=== PATIENT | female | born 1960 | race Caucasian/White ===

== ENCOUNTER 2017-09-29 18:09 | Emergency (ER) | payer MEDICARE ==
[~2017-09-29] VITALS: Ht 167.6 cm; Wt 139.3 kg
[~2017-09-29 18:09] MED LIST: ALBU18HF2 INH; ALPR-624 PO; AMIT-189 PO; CARV3.12 PO; HYDR-565 PO; INSU100V9 SQ; LISI2.5T2 PO; METF500T PO; METH20CP12 PO; TOPI100T18 PO; TRAV5DRO EACHEYE
[2017-09-29] MEDS ORDERED: ipratropium/albuterol 3ml nebule NEB ONE (18:35)
[2017-09-29 19:15] LABS: BASOPHILS % (AUTO) 0.4 % (0-1); EOSINOPHILS # (AUTO) 0.1 X10'3 (0-0.9); HEMATOCRIT 40.6 % (35.0-45.0); LYMPHOCYTES # (AUTO) 2.4 X10'3 (1.1-4.8); LYMPHOCYTES % (AUTO) 50.8 % (21-51); MEAN CORPUSCULAR HEMOGLOBIN 31.6 PG (27.0-31.0); MEAN CORPUSCULAR HGB CONC 34.5 % (33.0-36.5); MEAN CORPUSCULAR VOLUME 91.8 FL (78-98); MEAN PLATELET VOLUME 9.4 FL (7.4-10.4); MONOCYTES # (AUTO) 0.4 X10'3 (0-0.9); MONOCYTES % (AUTO) 8.9 % (2-12); NEUTROPHILS # (AUTO) 1.7 X10'3 (1.8-7.7); NEUTROPHILS % (AUTO) 36.9 % (42-75); PLATELET COUNT 180 X10'3 (140-440); RED BLOOD COUNT 4.42 X10'6 (4.20-5.60); RED CELL DISTRIBUTION WIDTH 12.6 % (11.5-14.5); WHITE BLOOD COUNT 4.7 X10'3 (4.5-11.0)
[2017-09-29 19:25] LABS: PROTHROMBIN TIME 10.3 SECONDS (9.0-12.0)
[2017-09-29 19:38] LABS: ALANINE AMINOTRANSFERASE 24 U/L (12-78); ALBUMIN 3.5 G/DL (3.4-5.0); ALBUMIN/GLOBULIN RATIO 0.9 (1.1-1.5); ALKALINE PHOSPHATASE 73 IU/L (46-116); ANION GAP 7 (8-16); ASPARTATE AMINO TRANSFERASE 15 U/L (10-37); BILIRUBIN,TOTAL 0.4 MG/DL (0.1-1.0); BLOOD UREA NITROGEN 16 MG/DL (7-18); CALCIUM 8.6 MG/DL (8.5-10.1); CHLORIDE 104 MMOL/L (99-107); GLUCOSE 116 MG/DL (70-104); POTASSIUM 3.6 MMOL/L (3.5-5.1); SODIUM 138 MMOL/L (135-145); TOTAL CARBON DIOXIDE 27.5 MMOL/L (24-32); TOTAL PROTEIN 7.2 G/DL (6.4-8.2); eGFR 74 ML/MIN
[2017-09-29 19:40] LABS: ABG BASE EXCESS -0.2 mmol/L (-2.0-3.0); ABG HCO3 23.8 mmol/L (22.0-26.0); ABG PCO2 (T) 36.1 mmHg (32.0-45.0); ABG PH (T) 7.435 (7.350-7.450); ABG PO2 (T) 76.6 mmHg (83-108); FCOHb 0.3 % (0.5-1.5); FO2Hb 95.7 % (94-100); PATIENT TEMPERATURE 36.6; TOTAL HEMOGLOBIN 14.3 G/dl (12.0-16.0)
[2017-09-29] MEDS ORDERED: GUAI120L55 PO (20:11)
[2017-09-29] MEDS ORDERED: ALBU8.5H8 INH (20:11)
[2017-09-29] MEDS ORDERED: GUAI600T45 PO (20:11)
[2017-09-29] MEDS ORDERED: PRED10TA PO (20:11)
[2017-09-29 20:48] VITALS: BP 152/89
== END 2017-09-29 20:49 | disposition home or self-care (01) ==
LOC: ER 18:10
DX: J09.X2 Influenza due to identified novel influenza A virus with other respiratory manifestations (principal); J20.8 Acute bronchitis due to other specified organisms; J45.909 Unspecified asthma, uncomplicated; I10 Essential (primary) hypertension; E11.9 Type 2 diabetes mellitus without complications; Z79.4 Long term (current) use of insulin; Z79.84 Long term (current) use of oral hypoglycemic drugs; Z79.899 Other long term (current) drug therapy; Z88.5 Allergy status to narcotic agent; Z88.8 Allergy status to other drugs, medicaments and biological substances
CPT/HCPCS: 36415; 36600; 71045; 80053; 82803; 83605; 83880; 84484; 85018; 85025; 85610; 87040; 87502; 87503; 93005; 94640; 94760; 99285

== ENCOUNTER 2019-06-05 14:17 | Emergency (ER) | payer MEDICARE ==
[~2019-06-05] VITALS: Ht 167.6 cm; Wt 122.0 kg
[~2019-06-05 14:17] MED LIST changes: +ALBU8.5H8 INH; +GUAI120L55 PO; +GUAI600T45 PO; +HYDR-4353 PO; -HYDR-565 PO; +PRED10TA PO; +TOP100T PO; -TOPI100T18 PO
[2019-06-05 15:33] LABS: CLARITY,URINE SLIGHTLY CLOUDY (Clear); COLOR,URINE YELLOW (Yellow); GLUCOSE, URINE NEGATIVE (Neg); KETONES,URINE NEGATIVE (Neg); LEUKOCYTE ESTERASE ,URINE SMALL (Neg); NITRITES, URINE NEGATIVE (Neg); OCCULT BLOOD,URINE NEGATIVE (Neg); PROTEIN,URINE NEGATIVE (Neg); UROBILINOGEN,URINE 0.2 E.U/dL (0.2-1.0)
[2019-06-05 15:34] LABS: BASOPHILS % (AUTO) 0.3 % (0-1); EOSINOPHILS # (AUTO) 0.3 X10'3 (0-0.9); EOSINOPHILS % (AUTO) 3.3 % (0-6); HEMATOCRIT 42.4 % (35.0-45.0); HEMOGLOBIN 14.2 g/dl (12.0-16.0); LYMPHOCYTES # (AUTO) 2.8 X10'3 (1.1-4.8); LYMPHOCYTES % (AUTO) 35.7 % (21-51); MEAN CORPUSCULAR HEMOGLOBIN 31.6 PG (27.0-31.0); MEAN CORPUSCULAR HGB CONC 33.5 g/dL (33.0-36.5); MEAN CORPUSCULAR VOLUME 94.5 FL (78-98); MEAN PLATELET VOLUME 9.5 FL (7.4-10.4); MONOCYTES # (AUTO) 0.6 X10'3 (0-0.9); MONOCYTES % (AUTO) 7.2 % (2-12); NEUTROPHILS # (AUTO) 4.1 X10'3 (1.8-7.7); NEUTROPHILS % (AUTO) 53.5 % (42-75); PLATELET COUNT 211 X10'3 (140-440); RED BLOOD COUNT 4.48 X10'6 (4.20-5.60); RED CELL DISTRIBUTION WIDTH 12.8 % (11.5-14.5); WHITE BLOOD COUNT 7.7 X10'3 (4.5-11.0)
[2019-06-05 15:36] LABS: UA COLLECTION TYPE CLN CATCH MIDSTREAM
[2019-06-05 15:40] LABS: BACTERIA,URINE 1+ /HPF (Neg); MUCUS STRANDS FEW /LPF (Neg); RBC,URINE 0-2 /HPF (0-2); SQUAMOUS EPITHELIAL CELL,UR MODERATE /LPF (FEW); WBC CLUMPS,URINE FEW /HPF (NEGATIVE)
[2019-06-05 15:59] LABS: ALANINE AMINOTRANSFERASE 20 U/L (12-78); ALBUMIN 3.7 G/DL (3.4-5.0); ALBUMIN/GLOBULIN RATIO 0.9 (1.1-1.5); ALKALINE PHOSPHATASE 77 IU/L (46-116); ANION GAP 7 (8-16); ASPARTATE AMINO TRANSFERASE 14 U/L (10-37); BILIRUBIN,TOTAL 0.3 MG/DL (0.1-1.0); BLOOD UREA NITROGEN 20 MG/DL (7-18); CALCIUM 8.8 MG/DL (8.5-10.1); CHLORIDE 107 MMOL/L (99-107); CREATININE 0.87 MG/DL (0.40-0.90); GLUCOSE 106 MG/DL (70-104); POTASSIUM 4.2 MMOL/L (3.5-5.1); SODIUM 142 MMOL/L (135-145); TOTAL CARBON DIOXIDE 28.3 MMOL/L (24-32); TOTAL PROTEIN 7.7 G/DL (6.4-8.2); eGFR 67 ML/MIN
--- NOTE | 2019-06-05 16:04 | NUR ---
[facility]: SHE HENOK PICK PATIENT UP FROM [facility], TAKE TO VASCULAR LAB FOR STUDY, [facility]
--- NOTE | 2019-06-05 17:42 | NUR ---
JOANNE AT [facility]. PT STATES INHALERS AND NEBULIZERS NOT WORKING. REPORTS HX OF GETTING PNA BUT HAS NOT HAD IT FOR 5 YEARS.
[2019-06-05] MEDS ORDERED: ipratropium/albuterol 3ml nebule NEB ONE (18:00)
[2019-06-05] MEDS ORDERED: AZIT250T PO (18:10)
[2019-06-05] MEDS ORDERED: BECL7.3A INH (18:10)
[2019-06-05] MEDS ORDERED: ALB0.5UD IH (18:10)
[2019-06-05] MEDS ORDERED: ALBU18HF2 INH (18:10)
[2019-06-05 19:42] VITALS: BP 126/67
--- NOTE | 2019-06-05 19:42 | NUR ---
PT FINSISHED NEB TREATMENT AND REPROTS MUCH IMPROVEMENT IN SYMPTOMS. CURRENT VSS, R A SATS 99%. PAIN TO LUNGS INCREASED WITH COUGHING . GIVEN WARM BLANKETS
== END 2019-06-05 19:51 | disposition home or self-care (01) ==
LOC: ER 14:18
DX: N39.0 Urinary tract infection, site not specified (principal); J45.901 Unspecified asthma with (acute) exacerbation; I10 Essential (primary) hypertension; E11.9 Type 2 diabetes mellitus without complications; M10.9 Gout, unspecified; M19.90 Unspecified osteoarthritis, unspecified site; F41.9 Anxiety disorder, unspecified; M79.7 Fibromyalgia; G47.30 Sleep apnea, unspecified; Z88.8 Allergy status to other drugs, medicaments and biological substances; Z88.6 Allergy status to analgesic agent; Z79.899 Other long term (current) drug therapy; Z79.2 Long term (current) use of antibiotics; Z90.49 Acquired absence of other specified parts of digestive tract; Z98.890 Other specified postprocedural states
CPT/HCPCS: 36415; 71046; 80053; 81001; 85025; 87088; 93005; 93971; 94640; 94760; 99284

== ENCOUNTER 2019-08-07 18:56 | Emergency (ER) | payer MEDICARE ==
[~2019-08-07] VITALS: Ht 172.7 cm; Wt 131.9 kg
[~2019-08-07 18:56] MED LIST changes: +AZIT250T PO; +BECL7.3A INH
[2019-08-07 20:12] LABS: COLOR,URINE YELLOW (Yellow); GLUCOSE, URINE NEGATIVE (Neg); KETONES,URINE NEGATIVE (Neg); LEUKOCYTE ESTERASE ,URINE SMALL (Neg); NITRITES, URINE NEGATIVE (Neg); OCCULT BLOOD,URINE NEGATIVE (Neg); PH,URINE 5.5 (4.8-8.0); PROTEIN,URINE NEGATIVE (Neg); UROBILINOGEN,URINE 0.2 E.U/dL (0.2-1.0)
[2019-08-07 20:13] LABS: URINE HCG NEGATIVE (NEG)
[2019-08-07 20:18] LABS: CLARITY,URINE SLIGHTLY CLOUDY (Clear); UA COLLECTION TYPE CLN CATCH MIDSTREAM
[2019-08-07 20:19] LABS: BACTERIA,URINE FEW /HPF (Neg); CAL OXALATE CRYSTALS 1+ /HPF (NEGATIVE); RBC,URINE 0-2 /HPF (0-2); SQUAMOUS EPITHELIAL CELL,UR FEW /LPF (FEW)
[2019-08-07] MEDS ORDERED: ipratropium/albuterol 3ml nebule NEB ONE (20:45)
[2019-08-07 21:08] LABS: BASOPHILS # (AUTO) 0.1 X10'3 (0-0.2); BASOPHILS % (AUTO) 0.5 % (0-1); EOSINOPHILS # (AUTO) 0.2 X10'3 (0-0.9); EOSINOPHILS % (AUTO) 2.3 % (0-6); HEMATOCRIT 46.2 % (35.0-45.0); HEMOGLOBIN 15.5 g/dl (12.0-16.0); LYMPHOCYTES % (AUTO) 28.6 % (21-51); MEAN CORPUSCULAR HEMOGLOBIN 31.6 PG (27.0-31.0); MEAN CORPUSCULAR HGB CONC 33.6 g/dL (33.0-36.5); MEAN CORPUSCULAR VOLUME 94.2 FL (78-98); MEAN PLATELET VOLUME 9.4 FL (7.4-10.4); MONOCYTES # (AUTO) 0.6 X10'3 (0-0.9); MONOCYTES % (AUTO) 6.1 % (2-12); NEUTROPHILS # (AUTO) 6.4 X10'3 (1.8-7.7); NEUTROPHILS % (AUTO) 62.5 % (42-75); PLATELET COUNT 251 X10'3 (140-440); RED BLOOD COUNT 4.91 X10'6 (4.20-5.60); RED CELL DISTRIBUTION WIDTH 13.2 % (11.5-14.5); WHITE BLOOD COUNT 10.3 X10'3 (4.5-11.0)
[2019-08-07 21:20] LABS: ALANINE AMINOTRANSFERASE 23 U/L (12-78); ALKALINE PHOSPHATASE 87 IU/L (46-116); ANION GAP 8 (8-16); ASPARTATE AMINO TRANSFERASE 10 U/L (10-37); BILIRUBIN,TOTAL 0.3 MG/DL (0.1-1.0); BLOOD UREA NITROGEN 19 MG/DL (7-18); BUN/CREATININE RATIO 24.4 (6.6-38.0); CALCIUM 9.1 MG/DL (8.5-10.1); CHLORIDE 105 MMOL/L (99-107); CREATININE 0.78 MG/DL (0.40-0.90); GLUCOSE 126 MG/DL (70-104); LIPASE 88 U/L (73-393); POTASSIUM 3.8 MMOL/L (3.5-5.1); SODIUM 139 MMOL/L (135-145); TOTAL CARBON DIOXIDE 26.2 MMOL/L (24-32); TOTAL PROTEIN 8.1 G/DL (6.4-8.2); eGFR 76 ML/MIN
[2019-08-07 22:38] VITALS: BP 162/84
== END 2019-08-07 22:41 | disposition home or self-care (01) ==
LOC: ER 18:59
DX: J20.9 Acute bronchitis, unspecified (principal); J32.9 Chronic sinusitis, unspecified; I10 Essential (primary) hypertension; J45.909 Unspecified asthma, uncomplicated; E11.9 Type 2 diabetes mellitus without complications; M19.90 Unspecified osteoarthritis, unspecified site; M79.7 Fibromyalgia; G47.30 Sleep apnea, unspecified; F41.9 Anxiety disorder, unspecified; Z90.49 Acquired absence of other specified parts of digestive tract; Z98.890 Other specified postprocedural states; Z88.6 Allergy status to analgesic agent; Z88.5 Allergy status to narcotic agent; Z88.8 Allergy status to other drugs, medicaments and biological substances; Z91.040 Latex allergy status; Z79.4 Long term (current) use of insulin; Z79.899 Other long term (current) drug therapy; Z79.84 Long term (current) use of oral hypoglycemic drugs
CPT/HCPCS: 36415; 71046; 80053; 81001; 81025; 83605; 83690; 85025; 87040; 87088; 87186; 94640; 94760; 99284

== ENCOUNTER → 2020-10-25 | Outpatient (CLI) | payer MEDICARE ==
[~2020-10-25] MED LIST changes: +ALBU2.5V10 PO; -AMIT-189 PO; +AMOX-580 PO; +AZEL137S4 BOTHNARES; -AZIT250T PO; +BLOO-577; +BUPR1PAT23 TOP; +DEXT20CA4 PO; +ERGO500054 PO; +HYDR-3686; +HYDR-3972 PO; +HYDR25TA4 PO; +HYDR2TAB7 PO; +LANC-509; +LEVO750T46 PO; +LIDOcaine 2% 5ml jelly ONE; +METF-438 PO; -METF500T PO; +MYC15CR; +NAPR-996 PO; +NEED-1; +OMEP-50 PO; +PHEN-887 PO; +POLY510P31; -PRED10TA PO; +ROSU10TA28 PO; +TOPI200T16; +TRAZ-251
== END | disposition home or self-care (01) ==
LOC: WOUND CARE 08:21
PROVIDERS: ATTEND Nurse Practitioner
DX: T81.89XA Other complications of procedures, not elsewhere classified, initial encounter (principal); L98.412 Non-pressure chronic ulcer of buttock with fat layer exposed; E11.36 Type 2 diabetes mellitus with diabetic cataract; E11.65 Type 2 diabetes mellitus with hyperglycemia; J45.909 Unspecified asthma, uncomplicated; M19.90 Unspecified osteoarthritis, unspecified site; I10 Essential (primary) hypertension; G89.4 Chronic pain syndrome; M79.7 Fibromyalgia; E66.01 Morbid (severe) obesity due to excess calories; F12.90 Cannabis use, unspecified, uncomplicated; Z79.4 Long term (current) use of insulin; Z86.14 Personal history of Methicillin resistant Staphylococcus aureus infection; Z96.651 Presence of right artificial knee joint; Z90.49 Acquired absence of other specified parts of digestive tract; Z68.42 Body mass index [BMI] 45.0-49.9, adult; Z79.899 Other long term (current) drug therapy; Y83.8 Other surgical procedures as the cause of abnormal reaction of the patient, or of later complication, without mention of misadventure at the time of the procedure; Y92.238 Other place in hospital as the place of occurrence of the external cause
CPT/HCPCS: 11042

== ENCOUNTER 2020-11-09 10:28 | Emergency (ER) | payer MEDICARE ==
[~2020-11-09] VITALS: Ht 165.1 cm; Wt 129.6 kg
[~2020-11-09 10:28] MED LIST changes: -LEVO750T46 PO; -LIDOcaine 2% 5ml jelly ONE
[2020-11-09 10:31] VITALS: BP 163/71
== END 2020-11-09 12:49 | disposition home or self-care (01) ==
LOC: ER 10:29
DX: S92.354A Nondisplaced fracture of fifth metatarsal bone, right foot, initial encounter for closed fracture (principal); I10 Essential (primary) hypertension; J45.909 Unspecified asthma, uncomplicated; E11.9 Type 2 diabetes mellitus without complications; M19.90 Unspecified osteoarthritis, unspecified site; M79.7 Fibromyalgia; M10.9 Gout, unspecified; G47.30 Sleep apnea, unspecified; Z88.6 Allergy status to analgesic agent; Z88.8 Allergy status to other drugs, medicaments and biological substances; Z91.040 Latex allergy status; Z79.4 Long term (current) use of insulin; Z79.899 Other long term (current) drug therapy; Z90.49 Acquired absence of other specified parts of digestive tract; X50.1XXA Overexertion from prolonged static or awkward postures, initial encounter; Y93.89 Activity, other specified; Y92.89 Other specified places as the place of occurrence of the external cause; Y99.8 Other external cause status
CPT/HCPCS: 73630; 99284

== ENCOUNTER 2020-12-15 13:07 | Emergency (ER) | payer MEDICARE ==
[~2020-12-15] VITALS: Ht 165.1 cm; Wt 135.4 kg
[~2020-12-15 13:07] MED LIST changes: -AMOX-580 PO; -HYDR-3686; +HYDR-3686 PO; +LIDOcaine 2% 5ml jelly ONE; -TRAZ-251; +TRAZ-251 PO
[2020-12-15 13:44] LABS: BASOPHILS % (AUTO) 0.3 % (0-1); EOSINOPHILS # (AUTO) 0.1 X10'3 (0-0.9); EOSINOPHILS % (AUTO) 1.9 % (0-6); HEMATOCRIT 39.6 % (35.0-45.0); HEMOGLOBIN 13.5 g/dl (12.0-16.0); LYMPHOCYTES # (AUTO) 2.3 X10'3 (1.1-4.8); LYMPHOCYTES % (AUTO) 30.1 % (21-51); MEAN CORPUSCULAR HEMOGLOBIN 32.5 PG (27.0-31.0); MEAN CORPUSCULAR VOLUME 95.6 FL (78-98); MEAN PLATELET VOLUME 9.2 FL (7.4-10.4); MONOCYTES # (AUTO) 0.5 X10'3 (0-0.9); MONOCYTES % (AUTO) 6.8 % (2-12); NEUTROPHILS # (AUTO) 4.6 X10'3 (1.8-7.7); NEUTROPHILS % (AUTO) 60.9 % (42-75); PLATELET COUNT 219 X10'3 (140-440); RED BLOOD COUNT 4.15 X10'6 (4.20-5.60); RED CELL DISTRIBUTION WIDTH 13.3 % (11.5-14.5); WHITE BLOOD COUNT 7.6 X10'3 (4.5-11.0)
[2020-12-15 13:59] LABS: ALANINE AMINOTRANSFERASE 19 U/L (12-78); ALBUMIN 3.8 G/DL (3.4-5.0); ALKALINE PHOSPHATASE 86 IU/L (46-116); ANION GAP 9 (8-16); ASPARTATE AMINO TRANSFERASE 10 U/L (10-37); BILIRUBIN,TOTAL 0.3 MG/DL (0.1-1.0); BLOOD UREA NITROGEN 19 MG/DL (7-18); BUN/CREATININE RATIO 24.1 (6.6-38.0); CALCIUM 9.5 MG/DL (8.5-10.1); CHLORIDE 103 MMOL/L (99-107); CREATININE 0.79 MG/DL (0.40-0.90); GLUCOSE 209 MG/DL (70-104); POTASSIUM 3.7 MMOL/L (3.5-5.1); SODIUM 141 MMOL/L (135-145); TOTAL CARBON DIOXIDE 28.6 MMOL/L (24-32); TOTAL PROTEIN 7.7 G/DL (6.4-8.2); eGFR 75 ML/MIN
[2020-12-15 17:36] LABS: D-DIMER 1.75 MG/L FEU (0-0.50)
[2020-12-15] MEDS ORDERED: acetaminophen 650mg rectal suppository RC PRN (17:40)
[2020-12-15] MEDS ORDERED: magnesium hydroxide 30ml (MOM) UD suspension PO PRN (17:40)
[2020-12-15] MEDS ORDERED: ondansetron/PF 4mg/2ml inj IV PRN (17:40)
[2020-12-15] MEDS ORDERED: nitroGLYCERIN 0.4mg SUBLingual tab SL PRN (17:40)
[2020-12-15] MEDS ORDERED: potassium Cl 40MEQ/1/2NS 520ml 520 ML IV PRN ×2 (17:40)
[2020-12-15] MEDS ORDERED: MESSAGE TO PHARMACY PO ONE (17:40)
[2020-12-15] MEDS ORDERED: dextrose 50%-water 50ml dispensing syringe IV PRN ×2 (17:40)
[2020-12-15] MEDS ORDERED: aminophylline 250mg/10ml inj. IV PRN (17:40)
[2020-12-15] MEDS ORDERED: dextrose ORAL solution 15 GM/59 ML bottle PO PRN ×2 (17:40)
[2020-12-15] MEDS ORDERED: acetaminophen 325mg tablet PO PRN ×2 (17:40)
[2020-12-15] MEDS ORDERED: regadenoson 0.4mg/5ml syringe IV ONE (17:40)
[2020-12-15] MEDS ORDERED: glucagon, human recombinant 1mg kit SUBCUT PRN (17:40)
[2020-12-15] MEDS ORDERED: diphenhydrAMINE 25mg capsule PO PRN (17:40)
[2020-12-15] MEDS ORDERED: magnesium 4gm in 100ml NS 100 ML IV PRN (17:40)
[2020-12-15] MEDS ORDERED: bisacodyl 10mg suppository rectal RC PRN (17:40)
[2020-12-15] MEDS ORDERED: insulin Lispro (HumaLOG) vial - multi-dose SQ SCH (17:40)
[2020-12-15] MEDS ORDERED: magnesium Cl slow-release 64mg tablet PO PRN (17:40)
[2020-12-15] MEDS ORDERED: mag hydrox/Alum hydrox/simeth 30ml oral suspension PO PRN (17:40)
[2020-12-15] MEDS ORDERED: metoprolol tartrate 1mg/ml inj IV PRN (17:40)
[2020-12-15] MEDS ORDERED: potassium Cl 20 mEq SR tablet PO PRN ×2 (17:40)
[2020-12-15] MEDS ORDERED: magnesium 2GM in 50ml NS 50 ML IV PRN (17:40)
[2020-12-15] MEDS ORDERED: DOCU-340 PO (17:42)
[2020-12-15] MEDS ORDERED: LISI2.5T2 PO (17:42)
[2020-12-15] MEDS ORDERED: INSU100V9 SQ ×2 (17:42)
[2020-12-15] MEDS ORDERED: TRET15GE13 TOP (17:42)
[2020-12-15] MEDS ORDERED: albuterol 2.5 MG/3 ML nebule NEB PRN (17:45)
[2020-12-15] MEDS ORDERED: hydrOXYzine 25 MG tablet PO PRN (17:45)
[2020-12-15] MEDS ORDERED: traZODone 50mg tablet PO PRN (17:45)
[2020-12-15] MEDS ORDERED: docusate sod 250mg capsule PO PRN (17:45)
[2020-12-15] MEDS ORDERED: HYDROcodone/acetaminophen 10/325mg tab PO PRN (17:45)
[2020-12-15] MEDS ORDERED: iohexol 350MG/ML 100ml bottle IV ONE (17:57)
[2020-12-15] MEDS ORDERED: MESSAGE TO NURSING PO ONE (18:50)
[2020-12-15 19:01] LABS: HEMOGLOBIN A1C 7.6 % (4.5-6.2)
[2020-12-15 19:31] LABS: CLARITY,URINE CLOUDY (Clear); COLOR,URINE YELLOW (Yellow); GLUCOSE, URINE NEGATIVE (Neg); KETONES,URINE NEGATIVE (Neg); LEUKOCYTE ESTERASE ,URINE NEGATIVE (Neg); NITRITES, URINE NEGATIVE (Neg); OCCULT BLOOD,URINE NEGATIVE (Neg); PH,URINE 7.5 (4.8-8.0); PROTEIN,URINE NEGATIVE (Neg); UROBILINOGEN,URINE 0.2 E.U/dL (0.2-1.0)
[2020-12-15 19:38] LABS: UA COLLECTION TYPE CLN CATCH MIDSTREAM
[2020-12-15 19:42] LABS: AMORPHOUS PHOSPHATES 4+
[2020-12-15 19:43] LABS: BACTERIA,URINE FEW /HPF (Neg); RBC,URINE NONE SEEN /HPF (0-2)
[2020-12-15 19:44] LABS: HYALINE CASTS 0-3 /LPF (NEGATIVE); MUCUS STRANDS MODERATE /LPF (Neg); SQUAMOUS EPITHELIAL CELL,UR FEW /LPF (FEW)
[2020-12-15] MEDS: TRETINOIN TP SCH (20:00)
[2020-12-15] MEDS: K and/or MAG REPLACEMENT MC SCH (20:00)
[2020-12-15] MEDS ORDERED: atorvastatin 20mg tablet PO SCH (21:00)
[2020-12-15] MEDS ORDERED: insulin glargine (Lantus) pen - multi-dose SQ SCH (21:00)
[2020-12-15] MEDS ORDERED: topiramate 100mg tablet PO SCH (21:00)
[2020-12-15] MEDS: normal saline 1000ml 1,000 ML IV SCH (21:04)
[2020-12-15] MEDS: heparin, porcine 5000 units/ml vial SQ SCH (21:05)
--- NOTE | 2020-12-15 21:33 | NUR ---
pt resting comfortably gave pt some food
--- NOTE | 2020-12-15 23:05 | NUR ---
PATIENT MOVED FROM [facility] TO HOSPITAL BED FOR COMFORT.
[2020-12-16] VITALS (7 sets, daily range): BP systolic 139–157; BP diastolic 60–74
[2020-12-16 02:02] LABS: BASOPHILS % (AUTO) 0.3 % (0-1); EOSINOPHILS # (AUTO) 0.2 X10'3 (0-0.9); EOSINOPHILS % (AUTO) 2.1 % (0-6); HEMATOCRIT 36.3 % (35.0-45.0); HEMOGLOBIN 12.2 g/dl (12.0-16.0); LYMPHOCYTES # (AUTO) 3.3 X10'3 (1.1-4.8); LYMPHOCYTES % (AUTO) 40.4 % (21-51); MEAN CORPUSCULAR HEMOGLOBIN 32.3 PG (27.0-31.0); MEAN CORPUSCULAR HGB CONC 33.5 g/dL (33.0-36.5); MEAN CORPUSCULAR VOLUME 96.4 FL (78-98); MEAN PLATELET VOLUME 9.6 FL (7.4-10.4); MONOCYTES # (AUTO) 0.5 X10'3 (0-0.9); MONOCYTES % (AUTO) 6.6 % (2-12); NEUTROPHILS # (AUTO) 4.1 X10'3 (1.8-7.7); NEUTROPHILS % (AUTO) 50.6 % (42-75); PLATELET COUNT 193 X10'3 (140-440); RED BLOOD COUNT 3.76 X10'6 (4.20-5.60); RED CELL DISTRIBUTION WIDTH 13.2 % (11.5-14.5); WHITE BLOOD COUNT 8.1 X10'3 (4.5-11.0)
[2020-12-16 02:06] LABS: ALANINE AMINOTRANSFERASE 15 U/L (12-78); ALBUMIN/GLOBULIN RATIO 0.9 (1.1-1.5); ALKALINE PHOSPHATASE 67 IU/L (46-116); ANION GAP 7 (8-16); ASPARTATE AMINO TRANSFERASE 9 U/L (10-37); BILIRUBIN,TOTAL 0.2 MG/DL (0.1-1.0); BLOOD UREA NITROGEN 21 MG/DL (7-18); BUN/CREATININE RATIO 24.1 (6.6-38.0); CALCIUM 8.2 MG/DL (8.5-10.1); CHLORIDE 106 MMOL/L (99-107); CREATININE 0.87 MG/DL (0.40-0.90); GLUCOSE 246 MG/DL (70-104); POTASSIUM 3.4 MMOL/L (3.5-5.1); SODIUM 141 MMOL/L (135-145); TOTAL CARBON DIOXIDE 28.5 MMOL/L (24-32); TOTAL PROTEIN 6.3 G/DL (6.4-8.2); eGFR 67 ML/MIN
[2020-12-16 02:09] LABS: CHOL/HDL RATIO 3.1 (0.00-4.99); CHOLESTEROL 116 MG/DL (0-200); HDL CHOLESTEROL 37 MG/DL (35-60); LDL CHOLESTEROL 55 MG/DL (50-100); MAGNESIUM 1.8 MG/DL (1.5-2.4); PHOSPHORUS 3.1 MG/DL (2.3-4.5); TRIGLYCERIDES 257 MG/DL (20-135)
[2020-12-16] MEDS ORDERED: HYDROchlorothiazide 25mg tablet PO SCH (08:00)
[2020-12-16] MEDS ORDERED: DEXTROAMPHETAMINE PO SCH (08:00)
[2020-12-16] MEDS ORDERED: AMPHETAMINE PO SCH (08:00)
[2020-12-16] MEDS ORDERED: lisinopril 2.5mg tablet PO SCH (08:00)
[2020-12-16] MEDS: K and/or MAG REPLACEMENT MC SCH (08:00)
[2020-12-16] MEDS: TRETINOIN TP SCH (08:00)
[2020-12-16] MEDS ORDERED: regadenoson 0.4mg/5ml syringe IV PRN (08:20)
--- NOTE | 2020-12-16 09:00 | NUR ---
PATIENT TAKEN TO NUCLEAR MEDICINE PER WHEELCHAIR.
[2020-12-16] MEDS ORDERED: CefTRIAXone/D5W-Rocephin 1gm 50 ML IV SCH (09:50)
[2020-12-16] MEDS ORDERED: pantoprazole 40 MG vial IV SCH (09:50)
[2020-12-16] MEDS: normal saline 1000ml 1,000 ML IV SCH (10:51)
[2020-12-16] MEDS: heparin, porcine 5000 units/ml vial SQ SCH (10:53)
--- NOTE | 2020-12-16 11:19 | NUR ---
PATIENT HAS BUPRENORPHINE PATCH FROM HOME. MED TAKEN TO PHARMACY TO GET CLEARED TO ADMINISTER. BOTTLE OF VITAMIN D2 WITH 3 TABS TAKEN TO PHARMACY. PHARMACY WILL SEND MEDS BACK WHEN IT IS APPROPRIATE TO ADMINISTER.
--- NOTE | 2020-12-16 13:10 | NUR ---
PAGE SENT TO DR. BIANCHI INQUIRING IF DIET CAN BE RESUMED, SINCE NUC MED TEST HAS BEEN COMPLETED. PAGER ID: [phone] MESSAGE: ER BED #10 Merly PINA. COMPLETED SUSANA SCAN. CAN HER CARB CONTROLLED DIET BE RESUMED? THANK YOU, PEYTON MARTÍNEZ EXT. [phone]
[2020-12-16] MEDS ORDERED: PANT40TA54 PO (13:39)
[2020-12-16] MEDS ORDERED: NITR0.4T51 SL (13:39)
[2020-12-16] MEDS ORDERED: CEFD300C3 PO (13:40)
[2020-12-16] MEDS ORDERED: lactobacillus rhamnosus 10,000 MMU CELLS/CAPSULE PO SCH (20:00)
== END 2020-12-16 15:01 | disposition home or self-care (01) ==
LOC: ER 13:08 → UNDOADMIN 17:38 → ED HOLD 17:38 → UNDODISIN 12-16 16:30
DX: R07.89 Other chest pain (principal); E11.9 Type 2 diabetes mellitus without complications; E66.01 Morbid (severe) obesity due to excess calories; E78.5 Hyperlipidemia, unspecified; F32.9 Major depressive disorder, single episode, unspecified; F41.9 Anxiety disorder, unspecified; G89.4 Chronic pain syndrome; G47.30 Sleep apnea, unspecified; I67.1 Cerebral aneurysm, nonruptured; G43.909 Migraine, unspecified, not intractable, without status migrainosus; M19.90 Unspecified osteoarthritis, unspecified site; M79.7 Fibromyalgia; M10.9 Gout, unspecified; I10 Essential (primary) hypertension; Z96.651 Presence of right artificial knee joint; Z68.42 Body mass index [BMI] 45.0-49.9, adult; Z90.49 Acquired absence of other specified parts of digestive tract; Z88.5 Allergy status to narcotic agent; Z91.040 Latex allergy status; Z79.4 Long term (current) use of insulin; Z79.899 Other long term (current) drug therapy
CPT/HCPCS: 36415; 71045; 71275; 78452; 80053; 80061; 81001; 82948; 83036; 83735; 84100; 84484; 85025; 85379; 87081; 87088; 93005; 93017; 93306; 93971; 96365; 96372; 96375; 99285; A9500; C9113; J0696; J1644; J1815; J2785; J7030; Q9967; 76937; 93308; 94760; G0378